=== PATIENT | male | born 1965 ===

== ENCOUNTER 2017-12-11 07:18 | Emergency (ER) | payer OTHER ==
[2017-12-11 07:27] VITALS: BP 145/99; PULSE 58; RESP 18; TEMP 98.5; O2SAT 98
--- NOTE | 2017-12-11 08:40 | CT ---
PROCEDURE: CT HEAD WITHOUT CONTRAST. HISTORY: head injury COMPARISON: None available. TECHNIQUE: Axial computed tomography images were obtained through the head/brain without intravenous contrast. Radiation dose: Total exam DLP = 857 mGy-cm. This CT exam was performed using one or more of the following dose reduction techniques: Automated exposure control, adjustment of the mA and/or kV according to patient size, and/or use of iterative reconstruction technique. FINDINGS: HEMORRHAGE: No intracranial hemorrhage. BRAIN: No mass effect or edema. No atrophy or chronic microvascular ischemic changes. Punctate bilateral basal ganglia calcifications. VENTRICLES: Unremarkable. No hydrocephalus. CALVARIUM: Unremarkable. PARANASAL SINUSES: Minimal mucosal thickening of the ethmoid air cells. MASTOID AIR CELLS: Unremarkable as visualized. No inflammatory changes. OTHER FINDINGS: Mild soft tissue swelling overlying the left frontal cranium. IMPRESSION: No acute intracranial abnormality. If symptoms persist, consider correlation with MRI.
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
== END 2017-12-11 10:00 | disposition home or self-care (01) ==
LOC: C.ER 07:18
DX: S09.90XA Unspecified injury of head, initial encounter (principal); Y04.0XXA Assault by unarmed brawl or fight, initial encounter; Y99.0 Civilian activity done for income or pay